=== PATIENT | female | born 1965 | race Hispanic/Latino ===

== ENCOUNTER 2021-08-13 08:54 | Outpatient (CLI) | payer OTHER ==
--- NOTE | 2021-08-13 09:52 | XRay Report ---
LUMBOSACRAL SPINE 3 VIEWS INDICATION: BACK PAIN. COMPARISON: None. IMPRESSION: There is minimal dextrocurvature of the lumbar spine on the frontal view. Normal alignme nt on the lateral view. 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 L5-S1 appears to be most affected. There are mild symmetric degenerative changes in the SI joints. No acute osseous or soft tissue abnormality. LEFT HIP 3 VIEWS INDICATION: Left hip pain. COMPARISON: None. IMPRESSION: No acute osseous or soft tissue abnormality. No significant DJD. LEFT KNEE 2 VIEWS INDICATION: Left knee pain. COMPARISON: None. IMPRESSION: Severe medial compartment joint space narrowing is identified. 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 No significant joint effu dorothea or soft tissue injury. Signer Name: Bc Bowden Jr, MD Signed: 08/13/2021 9:47 AM Workstation Name: [id number]
== END 2021-08-13 08:55 | disposition home or self-care (01) ==
LOC: XRAY 08:54
PROVIDERS: ATTEND Internal Medicine
DX: M16.12 Unilateral primary osteoarthritis, left hip (principal); M47.816 Spondylosis without myelopathy or radiculopathy, lumbar region; M25.552 Pain in left hip
CPT/HCPCS: 72100